=== PATIENT | female | born 1955 | race Asian ===

== ENCOUNTER 2025-08-15 08:05 | Emergency (ER) | payer OTHER ==
[~2025-08-15] VITALS: Ht 165.1 cm; Wt 61.9 kg
--- NOTE | 2025-08-15 08:16 | ED.PDOC ---
Back pain HPI HPI Comments A 69 YEAR OLD FEMALE PRESENTS TO THE ED WITH COMPLAINT OF LOWER BACK PAIN THAT RADIATES DOWN LEFT LEG. PATIENT STATES SHE HAS A HISTORY OF CHRONIC LOWER BACK PAIN AND SCIATICA AND HAS BEEN EXPERIENCING LOWER BACK PAIN THAT RADIATES DOWN HER LEFT LEG FOR THE PAST 3 DAYS. PATIENT REPORTS SHE HAS BEEN TAKING [id number] TYLENOL WITH NO IMPROVEMENT IN HER SYMPTOMS. PATIENT DENIES SADDLE ANESTHESIA, URINARY INCONTINENCE, BOWEL INCONTINENCE, DYSURIA, HEMATURIA, FLANK PAIN, FEVER, CHILLS, SHORTNESS OF BREATH, CHEST PAIN, ABDOMINAL PAIN, NAUSEA, VOMITING, HEADACHE, OR OTHER COMPLAINTS. NO OTHER SYMPTOMS OR MODIFYING FACTORS AT THIS TIME. PATIENT IS ALERT, ORIENTED X 4, AND HAS STEADY GAIT. Chief Complaint: Back Pain Time Seen by MD: 08:10 Reviewed Notes: Nurses Notes, Medications, Allergies Allergies: Coded Allergies: NO KNOWN ALLERGIES (Unverified , 08/15/25) Home Meds Active Scripts Tramadol HCl (Tramadol HCl) 50 Mg Tab, 50 MG PO BID, #24 TAB Prov:DEBORAH MANDUJANO 08/15/25 Ondansetron Odt 4MG Tab (ZOFRAN PO) 4 Mg Tb, 4 MG PO BID, #20 TAB ODT TAB-DISSOLVE IN MOUTH, THEN SWALLOW Prov:DEBORAH MANDUJANO 08/15/25 Information Source: Patient Mode of Arrival: Ambulatory Timing: Days Duration: Since onset, Days Location of Back pain: (B) Lower back Radiates to: Posterior: (L) Buttocks, (L) Calf, (L) Thigh Radiates to: Medial: (L) Buttocks, (L) Calf, (L) Thigh Radiates to: Lateral: (L) Buttocks, (L) Calf, (L) Thigh Severity: Moderate Prehospital treatment: None Quality: Aching, Cramping Onset: Spontaneous History of: Chronic Back Pain Modifying Factors: Movement, Twisting Associated signs and symptoms: None Past Medical History Past Medical History (Other): CHRONIC LOWER BACK PAIN, SCIATICA Surgical History: Denies all surgeries WOOD ROUTER History: No Pertinent WOOD ROUTER History Family History Family History: Reviewed,noncontributory to illness Social History Smoker: Non-Smoker Alcohol: Denies ETOH Use Drugs: Denies Drug Use Lives In: Home Constitutional: denies: chills, diaphoresis, fatigue, fever, malaise, sweats, weakness, others EENTM: denies: blurred vision, double vision, ear bleeding, ear discharge, ear drainage, ear pain, ear ringing, eye pain, eye redness, hearing loss, mouth pain, mouth swelling, nasal discharge, nose bleeding, nose congestion, nose pain, photophobia, tearing, throat pain, throat swelling, voice changes, others Respiratory: denies: cough, hemoptysis, orthopnea, SOB at rest, shortness of breath, SOB with excertion, stridor, wheezing, others Cardiovascular: denies: chest pain, dizzy spells, diaphoresis, Dyspnea on exertion, edema, irregular heart beat, left arm pain, lightheadedness, palpitations, PND, syncope, others Gastrointestinal: denies: abdomen distended, abdominal pain, blood streaked bowels, constipated, diarrhea, dysphagia, difficulty swallowing, hematemesis, melena, nausea, poor appetite, poor fluid intake, rectal bleeding, rectal pain, vomiting, others Genitourinary: denies: abnormal vagina bleeding, burning, dyspareunia, dysuria, flank pain, frequency, hematuria, incontinence, pain, , vagina discharge, urgency, others Neurological: denies: dizziness, fainting, headache, left sided numbness, left sided weakness, numbness, paresthesia, pre-existing deficit, right sided numbness, right sided weakness, seizure, speech problems, tingling, tremors, weakness, others Musculoskeletal: reports: back pain (LOWER BACK PAIN THAT RADIATES DOWN LEFT LEG), muscle pain; denies: gout, joint pain, joint swelling, muscle stiffness, neck pain, others Integumetry: denies: bruises, change in color, change in hair/nails, dryness, laceration, lesions, lumps, rash, wounds, others Allergic/Immunocompromised: denies: Difficulty Healing, Frequent Infections, Hives, Itching, others Hematologic/Lymphatic: denies: anemia, blood clots, easy bleeding, easy bruising, swollen glands, others Endocrine: denies: excessive hunger, excessive sweating, excessive thirst, excessive urination, flushing, intolerance to cold, intolerance to heat, unexplained weight gain, unexplained weight loss, others Psychiatric: denies: anxiety, bipolar disorder, depression, hopeless, panic disorder, schizophrenia, sleepless, suicidal, others All Other Systems: Reviewed and Negative Physical Exam General Appearance: No Apparent Distress, Normal HEENT: Normal ENT Inspection, PERRL/EOMI, Pharynx Normal, TMs Normal Neck: Full Range of Motion, Non-Tender, Normal, Normal Inspection Respiratory: Chest Non-Tender, Lungs Clear, No Accessory Muscle Use, No Respiratory Distress, Normal Breath Sounds Cardiovascular: No Edema, No JVD, No Murmur, No Gallop, Normal Peripheral Pulses, Regular Rate/Rhythm Breast Exam: Deferred Gastrointestinal: No Organomegaly, Non Tender, No Pulsatile Mass, Normal Bowel Sounds, Soft Genitalia: Deferred Pelvic: Deferred Rectal: Deferred Extremities: No calf tenderness, Normal capillary refill, Normal inspection, Normal range of motion, Non-tender, No pedal edema, Other (NO REDNESS, SWELLING AND DVT SIGNS OF LEFT LOWER EXTREMITY. ) Musculoskeletal : Location: Bilateral Extremity Location: Back Apperance: Tenderness: Moderate (TENDERNESS AND MUSCLE SPASM ON LOWER BACK, NO BONY TENDERNESS, SWELLING AND DEFORMITY. NO CVA TENDERNESS. ) Neurologic: Alert, pattern grader cutter II-XII nml as Tested, No Motor Deficits, Normal Affect, Normal Mood, No Sensory Deficits Cerebellar Function: Normal Reflexes: Normal Skin: Dry, Normal Color, Warm Peripheral Pulses: 2+ carotid (R), 2+ carotid (L), 2+ dorsalis pedis (R), 2+ dorsalis pedis (L) Lymphatic: No Adenopathy Was a procedure done? Was a procedure done?: No Back Pain Differential Dx Differential Diagnosis: DJD, Musculoskeletal Pain, Strain, Other (DDD OF LOW B ACK. ) Other Differential Diagnosis DDD, LUMBAR RADICULOPATHY, SCIATICA X-Ray, Labs, Meds, VS Vital Signs Date Time Temp Pulse Resp B/P (MAP) Pulse Ox O2 Delivery O2 Flow Rate FiO2 08/15/25 08:24 98.3 70 18 116/83 (94) 95 98.3 08/15/25 08:24 70 18 95 Room Air* 0 21 08/15/25 08:07 98.2 69 16 124/87 96 98.2 Current Medications Medications (Trade) Dose Ordered Sig/Judie Route Start Time Stop Time Status Last Admin Acetaminophen/ Hydrocodone Bitart ([place] 5/325MG Tab) 1 tab ONCE ONCE PO 08/15/25 08:30 08/15/25 08:31 DC 08/15/25 08:35 INDICATION: LOWER BACK PAIN TO LEFT LOWER LEG COMPARISON: None TECHNIQUE: 3 views of the lumbar spine were obtained. FINDINGS: Mild multilevel degenerative disc disease of lumbosacral spine. Diffuse osteopenia. No acute fracture, vertebral compression deformity or aggressive osseous lesions. The paravertebral soft tissues are grossly unremarkable. IMPRESSION: No acute fracture. ATED BY: NANETTE CHATMAN MD DICTATED DATE/TIME: 08/15/25853 SIGNED BY: NANETTE CHATMAN MD SIGNED DATE/TIME: 08/15/25853 CC: X-Ray, Labs, Meds, VS Comment EXTERNAL MEDICAL RECORDS REVIEWED: [NONE] INDEPENDENT HISTORIANS: [NONE] SOCIAL DETERMINANTS OF HEALTH: [NONE] LABS ORDERED: NONE REVIEWED AND INTERPRETED RESULTS: NONE IMAGING ORDERED: XR L-SPINE TREATMENTS ORDERED: [place] 5/325 MG PO PROCEDURES PERFORMED: NONE CRITICAL CARE TIME: NONE I HAVE DISCUSSED THE PATIENT WITH THE ATTENDING PHYSICIAN DR. JOHNSON AND HE AGREES WITH THE PATIENT'S PLAN OF CARE AND DISPOSITION. BASED ON HISTORY OF PRESENT ILLNESS, AND PHYSICAL EXAM, PATIENT WILL BE DISCHARGED HOME. DISCUSSED PLAN FOR DISCHARGE HOME WITH RX [ZOFRAN 4MG AND ULTRAM]. MEDICATION WARNINGS GIVEN. SHARED DECISION MAKING: PATIENT INSTRUCTED TO FOLLOW UP WITH PRIMARY CARE PROV IDER IN 1-2 DAYS FOR RE-EVALUATION OF SYMPTOMS. PATIENT VERBALIZES UNDERSTANDING TO RETURN TO ED FOR NEW OR WORSENING SYMPTOMS OR IF FOLLOW UP WITH PCP CANNOT BE OBTAINED. PATIENT FEELS COMFORTABLE GOING HOME AT THIS TIME. ALL QUESTIONS ADDRESSED AT TIME OF DISCHARGE. Images Reviewed?: Images reviewed and evaluated by me Time of 1ST Reevaluation: 09:00 Reevaluation 1ST: Improved Patient Education/Counseling: Diagnosis, Treatment, Need For Follow Up Family Education/Counseling: Diagnosis, Treatment, Need For Follow Up Medical Screening: No EMC Exist At This Time SEPSIS Sepsis Screen Date sepsis recognized/suspect: Aug 15, 2025 Time Sepsis recognized/suspect: 08 Recent Procedure: No On Antibiotic Therapy: No Respiratory Rate >20: No Heart Rate >90: No Temp<36 C (96.8 F) or >38.3 C: No SBP <90 or MAP <65 mmHG: No New Acute Mental Status Change: No Is the patient on CPAP, BIPAP,: No Physician Orders Lumbar Spine 3 View (08/15/25 08:16) Vital Signs Date Time Temp Pulse Resp B/P (MAP) Pulse Ox O2 Delivery O2 Flow Rate FiO2 08/15/25 08:24 98.3 70 18 116/83 (94) 95 98.3 08/15/25 08:24 70 18 95 Room Air* 0 21 08/15/25 08:07 98.2 69 16 124/87 96 98.2 Medications Medications Dose Ordered Sig/Judie Route Start Time Stop Time Status Last Admin Dose Admin Acetaminophen/ Hydrocodone Bitart 1 tab ONCE ONCE PO 08/15/25 08:30 08/15/25 08:31 DC 08/15/25 08:35 Departure 1 Departure Time of Disposition: 09:01 Impression: Primary Impression: DDD (degenerative disc disease), lumbar Qualified Codes: M51.362 - Other intervertebral disc degeneration, lumbar region with discogenic back pain and lower extremity pain Additional Impression: Lumbar radiculopathy Disposition: HOME / SELF CARE / HOMELESS Condition: Stable Additional Instructions: FOLLOW-UP WITH PCP IN 1 TO 2 DAYS FOR MRI STUDY. TAKE MEDICATIONS PRESCRIBED. RETURN TO ED FOR ANY NEW OR WORSENING SYMPTOMS. e-Prescriptions Tramadol HCl (Tramadol HCl) 50 Mg Tab 50 MG PO BID, #24 TAB Prov: DEBORAH MANDUJANO 08/15/25 Ondansetron Odt 4MG Tab (ZOFRAN PO) 4 Mg Tb 4 MG PO BID, #20 TAB ODT TAB-DISSOLVE IN MOUTH, THEN SWALLOW Prov: DEBORAH MANDUJANO 08/15/25 Discharged With: Self, Relative Critical Care Note Critical Care Time?: No Stability Stability form required: No I personally scribed for DEBORAH MANDUJANO ([email or web address]) on 08/15/25 at 08:16. Electronically submitted by Enmanuel Hemphill ([employer]). I personally scribed for DEBORAH MANDUJANO ([email or web address]) on 08/15/25 at 08:54. Electronically submitted by Enmanuel Hemphill ([employer]). I personally scribed for DEBORAH MANDUJANO ([email or web address]) on 08/15/25 at 08:59. Electronically submitted by Enmanuel Hemphill ([employer]). DEBORAH MANDUJANO Aug 15, 2025 08:16
[2025-08-15 08:24] VITALS: BP 116/83; PULSE 70; RESP 18; TEMP 98.3; O2SAT 95
[2025-08-15] MEDS: HYDROcodone-ACET 5/325MG TAB PO ONE (08:35)
[2025-08-15] MEDS ORDERED: ZOFR4T PO (08:56)
[2025-08-15] MEDS ORDERED: TRAM-626 PO (08:56)
--- NOTE | 2025-08-15 08:57 | DVH ---
INDICATION: LOWER BACK PAIN TO LEFT LOWER LEG COMPARISON: None TECHNIQUE: 3 views of the lumbar spine were obtained. FINDINGS: Mild multilevel degenerative disc disease of lumbosacral spine. Diffuse osteopenia. No acute fracture, vertebral compression deformity or aggressive osseous lesions. The paravertebral soft tissues are grossly unremarkable. IMPRESSION: No acute fracture.
== END 2025-08-15 09:08 | disposition home or self-care (01) ==
LOC: ER 08:05
DX: M51.369 Other intervertebral disc degeneration, lumbar region without mention of lumbar back pain or lower extremity pain (principal); M79.605 Pain in left leg; M54.16 Radiculopathy, lumbar region
CPT/HCPCS: 72100